=== PATIENT | male | born 1980 | race Caucasian/White ===

== ENCOUNTER 2019-08-15 18:33 | Emergency (ER) | payer BC ==
[2019-08-15] MEDS ORDERED: SODIUM CHLORIDE 0.9% 1,000 ML IV STA (18:47)
[2019-08-15] MEDS ORDERED: MAG HYDROX/AL HYDROX/SIMETH 30 ML, HYOSCYAMINE ELIXIR 10 ML, LIDOCAINE VISCOUS 2% 10 ML PO STA ×3 (18:48)
--- NOTE | 2019-08-15 18:51 | ED ---
General Adult HPI - General Chief complaint: Abdominal Pain Stated complaint: Stomach pain Time Seen by Provider: 08/15/19 18:43 Source: patient, RN notes reviewed, old records reviewed Mode of arrival: ambulatory Limitations: no limitations - History of Present Illness Initial comments: 39-year-old male patient with no pertinent past medical history presents to ED for chief complaint of epigastric pain and right upper quadrant pain since last night. Patient reports he went to urgent care who believe it may be gastritis symptom they brought him prescription he did not fill it. He reports that the pain is continued. He reportedly called his friend who is a nurse to thought it might be his gallbladder. Denies any previous intra-abdominal surgeries. Denies any other complaints at this time. Systemic: Pt denies fatigue, fever/chills, rash. Pt denies weakness, night sweats, weight loss. Neuro: Pt denies headache, visual disturbances, syncope or pre-syncope. HEENT: Pt denies ocular discharge or irritation, otalgia, rhinorrhea, pharyngitis or notable lymphadenopathy. Cardiopulmonary: Pt denies chest pain, SOB, heart palpitations, dyspnea on exertion. Abdominal/GI: Pt denies n/v/d. : Pt denies dysuria, burning w/ urination, frequency/urgency. Denies new onset urinary or bowel incontinence. MSK: Pt denies myalgia, loss of strength or function in extremities. Neuro: Pt denies new onset weakness, paresthesias. - Related Data Previous Rx's Medication Instructions Recorded Acetaminophen-Codeine 300-30mg 1 tab PO Q6H PRN #30 tablet 05/23/15 [Tylenol #3] Albuterol Inhaler [Ventolin Hfa 1 - 2 puff INHALATION Q6HR #1 05/23/15 Inhaler] inhaler Allergies Allergy/AdvReac Type Severity Reaction Status Date / Time No Known Allergies Allergy Verified 08/15/19 18:37 Review of Systems ROS Statement: Those systems with pertinent positive or pertinent negative responses have been documented in the HPI. ROS Other: All systems not noted in ROS Statement are negative. Past Medical History Past Medical History: No Reported History History of Any Multi-Drug Resistant Organisms: None Reported Past Surgical History: Hernia Repair Past Psychological History: No Psychological Hx Reported Smoking Status: Never smoker Past Alcohol Use History: None Reported Past Drug Use History: None Reported General Exam - General Exam Comments Initial Comments: Constitutional: NAD, AOX3, Pt has pleasant affect. HEENT: NC/AT, trachea midline, neck supple, no lymphadenopathy. Posterior pharynx non erythematous, without exudates. External ears appear normal, without discharge. Mucous membranes moist. Eyes PERRLA, EOM intact. There is no scleral icterus. No pallor noted. Cardiopulmonary: RRR, no murmurs, rubs or gallops, no JVD noted. Lungs CTAB in anterior and posterior brothers. No peripheral edema. Abdominal exam: Abdomen soft and non-distended. Abdomen mild tender to palpation right upper quadrant epigastric region. No guarding or rigidity. Mckay sign is negative.. Bowel sounds active in LLQ. No hepatosplenomegaly. No ecchymosis Neuro: CN II-XII grossly intact. No nuchal rigidity. No raccon eyes, no bullock sign, no hemotympanum. No cervical spinal tenderness. MSK: No posterior calf tenderness bilaterally, homans sign negative bilaterally. Posterior tibialis and radial pulse +2 bilaterally. Sensation intact in upper and lower extremities. Full active ROM in upper and lower extremities, 5/5 stregnth. Limitations: no limitations Course Vital Signs 08/15/19 18:35 Temperature 97.9 F Pulse Rate 70 Respiratory 20 Rate Blood Pressure 149/89 O2 Sat by Pulse 98 Oximetry Medical Decision Making - Medical Decision Making 39-year-old male patient with no pertinent past medical history presents to ED for chief complaint of epigastric pain and right upper quadrant pain since last night. Patient reports he went to urgent care who believe it may be gastritis symptom they brought him prescription he did not fill it. He reports that the pain is continued. He reportedly called his friend who is a nurse to thought it might be his gallbladder. Denies any previous intra-abdominal surgeries. Denies any other complaints at this time. Vital signs stable, afebrile. Physical exam: Abdomen soft and non-distended. Abdomen mild tender to palpation right upper quadrant epigastric region. No guarding or rigidity. Mckay sign is negative.. Bowel sounds active in LLQ. No hepatosplenomegaly. No ecchymosis. Laboratory investigations revealed mild cytosis 11.7. No lactic acidosis. UA displayed small blood was 1 protein, trace of esterase, 3 white blood cells. A bladder ultrasound displayed numerous gallstones, no dilated ducts, no acute fluid or gallbladder wall thickening. KUB displayed no acute process. Findings were discussed with patient Patient feeling much improved after Toradol. Abdomen nontender on repeat exam. Patient was discharged with outpatient follow-up with primary care provider and general surgeon. We'll turn the ER physician worsens. Case discussed with Dr. Hobbs. - Lab Data Result diagrams: 08/15/19 18:57 08/15/19 18:57 Lab Results 08/15/19 08/15/19 08/15/19 Range/Units 18:57 18:57 18:57 WBC 11.7 H (3.8-10.6) k/uL RBC 5.03 (4.30-5.90) m/uL Hgb 15.6 (13.0-17.5) gm/dL Hct 46.3 (39.0-53.0) % MCV 91.9 (80.0-100.0) fL MCH 31.1 (25.0-35.0) pg MCHC 33.8 (31.0-37.0) g/dL RDW 12.8 (11.5-15.5) % Plt Count 233 (150-450) k/uL Neutrophils % 77 % Lymphocytes % 14 % Monocytes % 5 % Eosinophils % 3 % Basophils % 1 % Neutrophils # 8.9 H (1.3-7.7) k/uL Lymphocytes # 1.6 (1.0-4.8) k/uL Monocytes # 0.6 (0-1.0) k/uL Eosinophils # 0.3 (0-0.7) k/uL Basophils # 0.1 (0-0.2) k/uL Sodium 142 (137-145) mmol/L Potassium 4.3 (3.5-5.1) mmol/L Chloride 105 (98-107) mmol/L Carbon Dioxide 27 (22-30) mmol/L Anion Gap 10 mmol/L BUN 15 (9-20) mg/dL Creatinine 0.94 (0.66-1.25) mg/dL Est GFR (CKD-EPI)AfAm >90 (>60 ml/min/1.73 sqM) Est GFR (CKD-EPI)NonAf >90 (>60 ml/min/1.73 sqM) Glucose 110 H (74-99) mg/dL Plasma Lactic Acid Tucker 0.8 (0.7-2.0) mmol/L Calcium 9.9 (8.4-10.2) mg/dL Total Bilirubin 0.5 (0.2-1.3) mg/dL AST 31 (17-59) U/L ALT 24 (4-49) U/L Alkaline Phosphatase 64 (38-126) U/L Total Protein 8.2 (6.3-8.2) g/dL Albumin 5.1 H (3.5-5.0) g/dL Lipase 145 (23-300) U/L Urine Color Urine Appearance (Clear) Urine pH (5.0-8.0) Ur Specific [place] (1.001-1.035) Urine Protein (Negative) Urine Glucose (UA) (Negative) Urine Ketones (Negative) Urine Blood (Negative) Urine Nitrite (Negative) Urine Bilirubin (Negative) Urine Urobilinogen (<2.0) mg/dL Ur Leukocyte Esterase (Negative) Urine WBC (0-5) /hpf Calcium Oxalate Crystal (None) /hpf Urine Mucus (None) /hpf 08/15/19 Range/Units 18:57 WBC (3.8-10.6) k/uL RBC (4.30-5.90) m/uL Hgb (13.0-17.5) gm/dL Hct (39.0-53.0) % MCV (80.0-100.0) fL MCH (25.0-35.0) pg MCHC (31.0-37.0) g/dL RDW (11.5-15.5) % Plt Count (150-450) k/uL Neutrophils % % Lymphocytes % % Monocytes % % Eosinophils % % Basophils % % Neutrophils # (1.3-7.7) k/uL Lymphocytes # (1.0-4.8) k/uL Monocytes # (0-1.0) k/uL Eosinophils # (0-0.7) k/uL Basophils # (0-0.2) k/uL Sodium (137-145) mmol/L Potassium (3.5-5.1) mmol/L Chloride (98-107) mmol/L Carbon Dioxide (22-30) mmol/L Anion Gap mmol/L BUN (9-20) mg/dL Creatinine (0.66-1.25) mg/dL Est GFR (CKD-EPI)AfAm (>60 ml/min/1.73 sqM) Est GFR (CKD-EPI)NonAf (>60 ml/min/1.73 sqM) Glucose (74-99) mg/dL Plasma Lactic Acid Tucker (0.7-2.0) mmol/L Calcium (8.4-10.2) mg/dL Total Bilirubin (0.2-1.3) mg/dL AST (17-59) U/L ALT (4-49) U/L Alkaline Phosphatase (38-126) U/L Total Protein (6.3-8.2) g/dL Albumin (3.5-5.0) g/dL Lipase (23-300) U/L Urine Color Yellow Urine Appearance Cloudy (Clear) Urine pH 6.0 (5.0-8.0) Ur Specific [place] 1.029 (1.001-1.035) Urine Protein 1+ H (Negative) Urine Glucose (UA) Negative (Negative) Urine Ketones Negative (Negative) Urine Blood Small H (Negative) Urine Nitrite Negative (Negative) Urine Bilirubin Negative (Negative) Urine Urobilinogen 2.0 (<2.0) mg/dL Ur Leukocyte Esterase Trace H (Negative) Urine WBC 3 (0-5) /hpf Calcium Oxalate Crystal Many H (None) /hpf Urine Mucus Many H (None) /hpf Disposition Clinical Impression: Biliary colic Disposition: HOME SELF-CARE Condition: Stable Instructions (If sedation given, give patient instructions): Low Fat Diet (ED), Gallstones (ED), Biliary Colic (ED) Additional Instructions: Follow-up with primary care provider tomorrow. Follow Up with general surgeon tomorrow. Return to ER if condition worsens in any way. Is patient prescribed a controlled substance at d/c from ED?: No Referrals: Dustin Nieto DO [Primary Care Provider] - 1-2 days Sarah Manning MD [STAFF PHYSICIAN] - 1-2 days
[2019-08-15 19:11] LABS: Basophils # (A) 0.1 k/uL (0-0.2); Basophils % (A) 1 %; Eosinophils # (A) 0.3 k/uL (0-0.7); Eosinophils % (A) 3 %; HCT 46.3 % (39.0-53.0); HGB 15.6 gm/dL (13.0-17.5); Lymphocytes # (A) 1.6 k/uL (1.0-4.8); Lymphocytes % (A) 14 %; MCH 31.1 pg (25.0-35.0); MCHC 33.8 g/dL (31.0-37.0); MCV 91.9 fL (80.0-100.0); Mean Platelet Volume 8.7; Monocytes # (A) 0.6 k/uL (0-1.0); Monocytes % (A) 5 %; Neutrophils # (A) 8.9 k/uL (1.3-7.7); Neutrophils % (A) 77 %; Platelet Count 233 k/uL (150-450); RBC 5.03 m/uL (4.30-5.90); RDW 12.8 % (11.5-15.5); WBC 11.7 k/uL (3.8-10.6)
[2019-08-15 19:13] LABS: Appearance,Urine Cloudy (Clear); Bilirubin,Urine Negative (Negative); Blood,Urine Small (Negative); Calcium Oxalate Crystals,Urine Many /hpf; Color,Urine Yellow; Glucose,Urine (UA) Negative (Negative); Ketones,Urine Negative (Negative); Leukocyte Esterase,Urine Trace (Negative); Mucus,Urine Many /hpf; Nitrite,Urine Negative (Negative); Protein,Urine 1+ (Negative); Specific Gravity,Urine 1.029 (1.001-1.035); WBC,Urine 3 /hpf (0-5)
[2019-08-15 19:21] LABS: ALT 24 U/L (4-49); AST 31 U/L (17-59); African American GFR (CKD) >90 (>60 ml/min/1.73 sqM); Albumin 5.1 g/dL (3.5-5.0); Alkaline Phosphatase 64 U/L (38-126); Anion Gap 10 mmol/L; Blood Urea Nitrogen 15 mg/dL (9-20); Calcium 9.9 mg/dL (8.4-10.2); Carbon Dioxide 27 mmol/L (22-30); Chloride 105 mmol/L (98-107); Glucose 110 mg/dL (74-99); Non-African American GFR(CKD) >90 (>60 ml/min/1.73 sqM); Potassium 4.3 mmol/L (3.5-5.1); Sodium 142 mmol/L (137-145); Total Bilirubin 0.5 mg/dL (0.2-1.3); Total Protein 8.2 g/dL (6.3-8.2)
--- NOTE | 2019-08-15 19:24 | XR ---
EXAMINATION TYPE: XR KUB DATE OF EXAM: 08/15/2019 COMPARISON: NONE HISTORY: Abdominal pain TECHNIQUE: 2 views upright FINDINGS: There is no sign of intestinal obstruction or pneumoperitoneum. Fecal pattern is normal. Linda ng bases are clear. There are no pathologic calcifications over the kidneys. There is no evidence of a mass. IMPRESSION: Nonacute abdomen.
--- NOTE | 2019-08-15 20:43 | US ---
EXAMINATION TYPE: US gallbladder DATE OF EXAM: 08/15/2019 COMPARISON: NONE CLINICAL HISTORY: RUQ pain. RUQ pain x 1 day. Hx hernia repair. EXAM MEASUREMENTS: Liver Length: 14.6 cm Gallbladder Wall: 0.24 cm CBD: 0.46 cm Right Kidney: 11.2 x 5.9 x 5.8 cm Limited due to gas Pancreas: Obscured by overlying bowel gas Liver: Appears to be wnl. Limited due to gas. Gallbladder: Measures 9.2 cm in length. Multiple hyperechoic foci seen within the gallbladder. Evidence for sonographic Mckay's sign: yes CBD: Appears to be wnl Right Kidney: No hydronephrosis or masses seen IMPRESSION: There are numerous gallstones. No dilated ducts. No free fluid. No gallbladder wall thickening seen.
[2019-08-15] MEDS ORDERED: KETOROLAC 30 MG/ML 1 ML VIAL IVP STA (21:16)
[2019-08-15] MEDS ORDERED: ONDANSETRON 4 MG/2 ML VIAL IVP STA (21:16)
[2019-08-15] MEDS ORDERED: ONDANSETRON 4 MG ODT STARTER PACK 2 TAB BTL PO STA (22:25)
[2019-08-15] MEDS ORDERED: ACET/COD 300 MG/30 MG STARTER PACK 6 TAB BTL PO STA (22:25)
[2019-08-15 22:33] VITALS: BP 143/75; PULSE 80; RESP 18; TEMP 97.8
--- NOTE | 2019-08-16 18:35 | ED ---
Medical Decision Making - Medical Decision Making Patient called emergency department at approximately 1800 on 08/16 stating he is still experiencing pain. Recommended patient to return to emergency department for concern for cholecystitis. Patient verbalized understanding. Discussed risks of cholecystitis patient verbalized understanding. - Lab Data Result diagrams: 08/15/19 18:57 08/15/19 18:57 Lab Results 08/15/19 08/15/19 08/15/19 Range/Units 18:57 18:57 18:57 WBC 11.7 H (3.8-10.6) k/uL RBC 5.03 (4.30-5.90) m/uL Hgb 15.6 (13.0-17.5) gm/dL Hct 46.3 (39.0-53.0) % MCV 91.9 (80.0-100.0) fL MCH 31.1 (25.0-35.0) pg MCHC 33.8 (31.0-37.0) g/dL RDW 12.8 (11.5-15.5) % Plt Count 233 (150-450) k/uL Neutrophils % 77 % Lymphocytes % 14 % Monocytes % 5 % Eosinophils % 3 % Basophils % 1 % Neutrophils # 8.9 H (1.3-7.7) k/uL Lymphocytes # 1.6 (1.0-4.8) k/uL Monocytes # 0.6 (0-1.0) k/uL Eosinophils # 0.3 (0-0.7) k/uL Basophils # 0.1 (0-0.2) k/uL Sodium 142 (137-145) mmol/L Potassium 4.3 (3.5-5.1) mmol/L Chloride 105 (98-107) mmol/L Carbon Dioxide 27 (22-30) mmol/L Anion Gap 10 mmol/L BUN 15 (9-20) mg/dL Creatinine 0.94 (0.66-1.25) mg/dL Est GFR (CKD-EPI)AfAm >90 (>60 ml/min/1.73 sqM) Est GFR (CKD-EPI)NonAf >90 (>60 ml/min/1.73 sqM) Glucose 110 H (74-99) mg/dL Plasma Lactic Acid Tucker 0.8 (0.7-2.0) mmol/L Calcium 9.9 (8.4-10.2) mg/dL Total Bilirubin 0.5 (0.2-1.3) mg/dL AST 31 (17-59) U/L ALT 24 (4-49) U/L Alkaline Phosphatase 64 (38-126) U/L Total Protein 8.2 (6.3-8.2) g/dL Albumin 5.1 H (3.5-5.0) g/dL Lipase 145 (23-300) U/L Urine Color Urine Appearance (Clear) Urine pH (5.0-8.0) Ur Specific [place] (1.001-1.035) Urine Protein (Negative) Urine Glucose (UA) (Negative) Urine Ketones (Negative) Urine Blood (Negative) Urine Nitrite (Negative) Urine Bilirubin (Negative) Urine Urobilinogen (<2.0) mg/dL Ur Leukocyte Esterase (Negative) Urine WBC (0-5) /hpf Calcium Oxalate Crystal (None) /hpf Urine Mucus (None) /hpf 08/15/19 Range/Units 18:57 WBC (3.8-10.6) k/uL RBC (4.30-5.90) m/uL Hgb (13.0-17.5) gm/dL Hct (39.0-53.0) % MCV (80.0-100.0) fL MCH (25.0-35.0) pg MCHC (31.0-37.0) g/dL RDW (11.5-15.5) % Plt Count (150-450) k/uL Neutrophils % % Lymphocytes % % Monocytes % % Eosinophils % % Basophils % % Neutrophils # (1.3-7.7) k/uL Lymphocytes # (1.0-4.8) k/uL Monocytes # (0-1.0) k/uL Eosinophils # (0-0.7) k/uL Basophils # (0-0.2) k/uL Sodium (137-145) mmol/L Potassium (3.5-5.1) mmol/L Chloride (98-107) mmol/L Carbon Dioxide (22-30) mmol/L Anion Gap mmol/L BUN (9-20) mg/dL Creatinine (0.66-1.25) mg/dL Est GFR (CKD-EPI)AfAm (>60 ml/min/1.73 sqM) Est GFR (CKD-EPI)NonAf (>60 ml/min/1.73 sqM) Glucose (74-99) mg/dL Plasma Lactic Acid Tucker (0.7-2.0) mmol/L Calcium (8.4-10.2) mg/dL Total Bilirubin (0.2-1.3) mg/dL AST (17-59) U/L ALT (4-49) U/L Alkaline Phosphatase (38-126) U/L Total Protein (6.3-8.2) g/dL Albumin (3.5-5.0) g/dL Lipase (23-300) U/L Urine Color Yellow Urine Appearance Cloudy (Clear) Urine pH 6.0 (5.0-8.0) Ur Specific [place] 1.029 (1.001-1.035) Urine Protein 1+ H (Negative) Urine Glucose (UA) Negative (Negative) Urine Ketones Negative (Negative) Urine Blood Small H (Negative) Urine Nitrite Negative (Negative) Urine Bilirubin Negative (Negative) Urine Urobilinogen 2.0 (<2.0) mg/dL Ur Leukocyte Esterase Trace H (Negative) Urine WBC 3 (0-5) /hpf Calcium Oxalate Crystal Many H (None) /hpf Urine Mucus Many H (None) /hpf Disposition Clinical Impression: Biliary colic Disposition: HOME SELF-CARE Condition: Stable Instructions (If sedation given, give patient instructions): Biliary Colic (ED), Gallstones (ED), Low Fat Diet (ED) Additional Instructions: Follow-up with primary care provider tomorrow. Follow Up with general surgeon tomorrow. Return to ER if condition worsens in any way. Is patient prescribed a controlled substance at d/c from ED?: No Referrals: Sarah Manning MD [STAFF PHYSICIAN] - 1-2 days Dustin Nieto DO [Primary Care Provider] - 1-2 days
== END 2019-08-15 22:30 | disposition home or self-care (01) ==
LOC: EC 18:33
DX: K80.70 Calculus of gallbladder and bile duct without cholecystitis without obstruction (principal); R80.9 Proteinuria, unspecified; R31.9 Hematuria, unspecified; R82.81 Pyuria; R82.998 Other abnormal findings in urine
CPT/HCPCS: 36415; 80053; 83605; 83690; 85025; 81001; 74018; 76705; 99285; 96374; 96375; 96361 ×2; J2405; J1885; S0119

== ENCOUNTER → 2020-09-10 | Outpatient (CLI) | payer BC ==
--- NOTE | 2020-09-10 15:45 | CONS ---
CONSULTATION DATE OF SERVICE: 09/10/2020 This is a 40-year-old gentleman who has been evaluated in the sleep center for his multiple sleep problems. HISTORY OF PRESENT ILLNESS/SLEEP-WAKE EVALUATION: Patient usually goes to bed quite early, 7:30 or 8:30, because his son is 5 years old and he sleeps with him in the same bed, and he usually goes to bed with his son. Then he stays in bed until he falls asleep, and that usually takes a long time. He gets up in the morning around 6 a.m. on weekdays. On weekends he goes to bed about 9 or 10 p.m. and gets up in the morning around 6 or 7 a.m. No TV in bedroom. He usually sleeps on the back and side position. He snores rarely, but he wakes up from sleep 2 times with nocturia. No history of hypnagogic hallucinations, sleep paralysis or cataplexy. During the day the patient does not take naps. [place] Sleepiness Scale is 1. PAST MEDICAL HISTORY: Positive for recent memory problems, episodes of depression, headaches. PAST SURGICAL HISTORY: Hernia repair. MEDICATIONS: Multivitamins. SOCIAL HISTORY: Negative for smoking or using alcohol. FAMILY HISTORY: Positive for heart problems. REVIEW OF SYSTEMS: Multiple awakenings from sleep, feeling not refreshed in the morning after getting out of bed, difficulties paying attention, problems with memory and concentration. PHYSICAL EXAMINATION: GENERAL: A pleasant gentleman without distress. VITAL SIGNS: BP 110/75, HR 76, RR 12, height 5 feet 11 inches, weight 172.8 pounds, temperature 98.7, oxygen saturation at room air 98%. HEENT: PERRLA, EOMI. Evaluation of oropharynx showed tongue protrudes midline. Low position of soft palate. Mallampati III to IV. NECK: Supple. No JVD. Thyroid is not palpable. Neck measures 16 inches in circumference. LUNGS: Clear to percussion and to auscultation. Good air exchange. No wheezing or rhonchi. HEART: S1, S2 regular. No murmurs, gallops or rubs. ABDOMEN: Soft and nontender. Bowel sounds are present. No organomegaly appreciated. EXTREMITIES: No clubbing or cyanosis. HADOOP CONSULTANT: Awake, alert, and oriented X3. Cranial nerves 2 to 7 intact. There is no fasciculation or atrophy. noted. No focal deficits observed. IMPRESSION: 1. Multiple awakenings from sleep with nocturia, low position of soft palate, feeling not refreshed in the morning after sometimes a long period of sleep; possible obstructive sleep apnea-hypopnea syndrome. 2. Difficulties initiating sleep; psychophysiological insomnia. The patient sleeps in bed with his son. 3. Memory problems. 4. Headaches. 5. Episodes of depression. 6. Status post hernia repair. PLAN: 1. I discussed with the patient some psychological techniques for treatment of insomnia: Stimulus control, paradoxical intention. 2. Will proceed with a sleep study for evaluation of patient's breathing during sleep. 3. Precautions related to driving. No driving if feeling any sleepiness. 4. Sleep hygiene with regular time in bed for 7-1/2 hours. Thank you very much for referring this patient for consultation. Sincerely, Quang Cardenas MD, PhD, FAASM Diplomat of [place] [employer] [place] [employer] Ass[employer] [facility] [place] MMODL / KAYLEEN: [id number] /
== END | disposition home or self-care (01) ==
LOC: SLEEP 11:30
PROVIDERS: ATTEND Internal Medicine
DX: F51.04 Psychophysiologic insomnia (principal); R35.1 Nocturia; R51.9 Headache, unspecified; F32.9 Major depressive disorder, single episode, unspecified; Z98.890 Other specified postprocedural states; R41.3 Other amnesia
CPT/HCPCS: 99211

== ENCOUNTER → 2020-10-15 | Outpatient (CLI) | payer BC ==
--- NOTE | 2020-10-15 20:18 | SFUN ---
SLEEP CENTER FOLLOW UP NOTE DATE OF SERVICE: 10/15/2020 This is a 40-year-old gentleman who has been followed in Sleep Center and came in to discuss results of his home sleep apnea test and the following plan. I discussed results of his home sleep apnea test with the patient in detail. Total apnea-hypopnea index was 3, lowest desaturation 86%. Respiratory channel showed 3 central apneas, 2 obstructive apneas and 13 hypopneas. Saturation was below or equal to 88% for 12 minutes, according to computer calculation. Recording was done for 8 hours 34 minutes, but duration of analyzing time was only 5 hours 58 minutes because some of the sensors did not work for the whole period of time. The patient also that part of the time he did not sleep; consequently results of the test may underestimate the severity of his respiratory abnormalities. PHYSICAL EXAMINATION: GENERAL: A pleasant patient in no distress. VITAL SIGNS: BP 120/80, HR 68, RR 15, oxygen saturation at room air 96%. Temperature 96.7. HEENT: PERRLA, EOMI. Evaluation of oropharynx showed tongue protrudes midline. Low position of soft palate. Mallampati III to IV. NECK: Supple. No JVD. Thyroid is not palpable. LUNGS: Clear to percussion and to auscultation. Good air exchange. No wheezing or rhonchi. HEART: S1, S2 regular. No murmurs, gallops or rubs. ABDOMEN: Soft and nontender. Bowel sounds are present. No organomegaly appreciated. EXTREMITIES: No clubbing or cyanosis. REGIONAL EXTENSION SERVICE SPECIALIST: Awake, alert, and oriented X3. Cranial nerves 2 to 7 intact. There is no fasciculation or atrophy. noted. No focal deficits observed. IMPRESSION: 1. Very minimal abnormalities of respiration by results of home sleep apnea test, but results could be false-negative because the patient did not sleep for the whole period of the recording. 2. Psychophysiological insomnia. 3. Memory problems. 4. Headaches. 5. Episodes of depression. 6. Status post hernia repair. PLAN: 1. Repeat home sleep apnea test. 2. Sleep hygiene with regular time in bed for 7-1/2 hours. 3. No driving if feeling sleepiness. Thank you very much for allowing me to participate in the management of your patient. Sincerely, Quang Cardenas MD, PhD, FAASM Diplomat of [place] [employer] [place] [employer] Ent Surgeon [facility] [place] MMKATHIAL / KAYLEEN: [id number] /
== END ==
LOC: SLEEP 16:05
PROVIDERS: ATTEND Internal Medicine
DX: F51.04 Psychophysiologic insomnia (principal); R51.9 Headache, unspecified; F32.9 Major depressive disorder, single episode, unspecified; R41.3 Other amnesia; Z98.890 Other specified postprocedural states

== ENCOUNTER → 2021-04-14 | Outpatient (CLI) | payer BC | END | disposition home or self-care (01) | LOC: LABWHC1 09:57 | PROVIDERS: ATTEND Dermatology Dermatopathology | DX: L40.0 Psoriasis vulgaris (principal); Z79.899 Other long term (current) drug therapy | CPT/HCPCS: 36415; 86480 ==

== ENCOUNTER → 2022-02-24 | Outpatient (CLI) | payer BC ==
--- NOTE | 2022-02-24 16:58 | P.PN ---
Subjective DATE: 02/24/2022 FOLLOW UP VISIT. 41-year-old gentleman has been followed in the sleep clinic for possible obstructive sleep apnea hypopnea syndrome. Patient had sleep study about 17 months ago which showed borderline results with apnea-hypopnea index 5.0. Presently patient sleep schedule from 9:30- 10 PM to 5:30 AM. Patient wakes up from sleep 2 times with nocturia. Patient feel tiredness and episodes of sleepiness during the day. She continued to have difficulties with the falling to sleep. [place] Sleepiness Scale is 4. MEDICATIONS:1. Melatonin 5-10 mg several times a week. During physical exam: GENERAL: A pleasant patient without any distress. VITAL SIGNS: BP 124/76, HR 52, RR 14 , weight 176.0, temperature 97.1, oxygen saturation at room air 97 % . HEENT: PERRLA, EOMI.low position of soft palate, Mallapati 3-4 . NECK: Supple. No JVD. LUNGS: Clear to percussion and to auscultation. Good air exchange. No wheezing or rhonchi. HEART: S1, S2 regular. ABDOMEN: Soft and nontender.[] EXTREMITIES: No clubbing or cyanosis. PERSONNEL ASSISTANT: Awake, alert, and oriented x3. No focal deficit. Impressions: 1. Multiple awakenings from sleep, low position of soft palate. Results of home sleep apnea test 1 year ago borderline, possibly underestimation of severity of sleep apnea by home sleep apnea test. Obstructive sleep apnea hypopnea syndrome 2. Difficulties to initiate sleep cycle physiological insomnia. 3. Memory problems. 4. Headaches. 5. History of episodes of depression. 6. Status post hernia repair. Plan: 1. Polysomnography for evaluation of patient breathing during the sleep. Results of previously done home sleep apnea test borderline. Patient has history of insomnia which could be the reason for underestimation of severity of sleep apnea. 2. Sleep hygiene was on bed for 7 to half hours. 3. No driving if feel any sleepiness. 4. Following plan after reviewing results of polysomnogram. Thank you very much for allowing me to participate in the management of your patient. Quang Cardenas MD, PhD, FAASM. Diplomat of [place] [employer], Sleep Medicine Board by [place] [employer] Teacher [facility] [place]
== END | disposition home or self-care (01) ==
LOC: SLEEP 16:04
PROVIDERS: ATTEND Internal Medicine
DX: G47.33 Obstructive sleep apnea (adult) (pediatric) (principal); R51.9 Headache, unspecified; Z98.890 Other specified postprocedural states
CPT/HCPCS: 99212

== ENCOUNTER → 2022-04-26 | Outpatient (CLI) | payer BC | END | disposition home or self-care (01) | LOC: LABWHC1 09:59 | PROVIDERS: ATTEND Dermatology | DX: L40.0 Psoriasis vulgaris (principal) | CPT/HCPCS: 36415; 86480 ==

== ENCOUNTER → 2022-05-18 | Outpatient (CLI) | payer BC | END | disposition home or self-care (01) | LOC: LABWHC1 16:18 | PROVIDERS: ATTEND Dermatology | DX: Z79.899 Other long term (current) drug therapy (principal) | CPT/HCPCS: 36415; 86480 ==

== ENCOUNTER → 2023-08-04 | Outpatient (CLI) | payer BC | END | disposition home or self-care (01) | LOC: LABWHC1 10:49 | PROVIDERS: ATTEND Nurse Practitioner Family | DX: L40.0 Psoriasis vulgaris (principal); Z79.899 Other long term (current) drug therapy | CPT/HCPCS: 36415; 86480 ==

== ENCOUNTER 2024-01-11 16:24 | Emergency (ER) | payer BC ==
--- NOTE | 2024-01-11 16:53 | ED ---
Abdominal Pain HPI - General Stated Complaint: gallstones Time Seen by Provider: 01/11/24 17:03 Source: RN notes reviewed - History of Present Illness Initial Comments: 43 year old male with hx of gallstones presenting to the ER with right upper quadrant pain x 1 day. states the pain is constant and awoke him from his sleep at 4 AM this morning. States it feels similar to previous "gallstone pain". He has known history of gallstones and concerned he may have a "clogged duct". last ultrasound of abdomen was [address] Manning. denies fever, chills, vomiting, diarrhea. He has been tolerating orals well today. - Related Data Previous Rx's Medication Instructions Recorded Acetaminophen-Codeine 300-30mg 1 tab PO Q6H PRN #30 tablet 05/23/15 [Tylenol #3] Albuterol Inhaler [Ventolin Hfa 1 - 2 puff INHALATION Q6HR #1 05/23/15 Inhaler] inhaler Ketorolac [Toradol] 10 mg PO Q8HR #15 tab 01/11/24 Ondansetron Odt [Zofran Odt] 4 mg PO Q8HR PRN #10 tab 01/11/24 Allergies Allergy/AdvReac Type Severity Reaction Status Date / Time No Known Allergies Allergy Verified 01/11/24 17:46 Review of Systems ROS Statement: Those systems with pertinent positive or pertinent negative responses have been documented in the HPI. ROS Other: All systems not noted in ROS Statement are negative. Past Medical History Past Medical History: No Reported History History of Any Multi-Drug Resistant Organisms: None Reported Past Surgical History: Hernia Repair Past Psychological History: No Psychological Hx Reported Past Alcohol Use History: None Reported Past Drug Use History: None Reported General Exam - General Exam Comments Initial Comments: Visual Physical Exam General: Well-appearing, nontoxic, no acute distress. Head: Normocephalic, atraumatic Eyes: PERRLA, EOMI ENT: Airway patent Chest: Nonlabored breathing Skin: No visual rash, normal skin tone Neuro: Alert and oriented 3 Musculoskeletal: No gross abnormalities General appearance: alert, in no apparent distress Head exam: Present: atraumatic, normocephalic, normal inspection Eye exam: Present: normal appearance, PERRL, EOMI. Absent: scleral icterus, conjunctival injection, periorbital swelling ENT exam: Present: normal exam, mucous membranes moist Neck exam: Present: normal inspection. Absent: tenderness, meningismus, lymphadenopathy Respiratory exam: Present: normal lung sounds bilaterally. Absent: respiratory distress, wheezes, rales, rhonchi, stridor Cardiovascular Exam: Present: regular rate, normal rhythm, normal heart sounds. Absent: systolic murmur, diastolic murmur, rubs, gallop, clicks GI/Abdominal exam: Present: soft, normal bowel sounds, other (Negative Mckay sign). Absent: distended, tenderness, guarding, rebound, rigid Extremities exam: Present: normal inspection, full ROM, normal capillary refill. Absent: tenderness, pedal edema, joint swelling, calf tenderness Course Vital Signs 01/11/24 01/11/24 01/11/24 17:39 20:43 21:41 Temperature 98.6 F 98.0 F 98.6 F Pulse Rate 67 50 L 55 L Respiratory 18 18 17 Rate Blood Pressure 152/98 164/76 127/69 O2 Sat by Pulse 97 99 95 Oximetry Medical Decision Making - Medical Decision Making I completed the quick note portion of this chart signed Fadia Brock PA-C Was pt. sent in by a medical professional or institution (, ANICETO, RELATIONS SPECIALIST, urgent care, hospital, or skilled nursing...) When possible be specific @ -No Did you speak to anyone other than the patient for history (EMS, parent, family, police, friend...)? What history was obtained from this source @ -No Did you review nursing and triage notes (agree or disagree)? Why? @ -I reviewed and agree with nursing and triage notes Were old charts reviewed (outside hosp., previous admission, EMS record, old EKG, old radiological studies, urgent care reports/EKG's, skilled nursing records)? Report findings @ -No old charts were reviewed Differential Diagnosis (chest pain, altered mental status, abdominal pain women, abdominal pain men, vaginal bleeding, weakness, fever, dyspnea, syncope, headache, dizziness, GI bleed, back pain, seizure, CVA, palpatations, mental health, musculoskeletal)? @ -Differential Abdominal Pain Men: Appendicitis, cholecystitis, diverticulosis, ischemic bowel, pancreatitis, hepatitis, UTI, gastroenteritis, AAA, incarcerated hernia, bowel obstruction, co nstipation, inflammatory bowel, hepatitis, peptic ulcer disease, splenic infarction, perforated viscus, testicular torsion, this is not meant to be an all-inclusive list EKG interpreted by me (3pts min.). @ -None X-rays interpreted by me (1pt min.). @ -None done CT interpreted by me (1pt min.). @ -None done U/S interpreted by me (1pt. min.). @ -Ultrasound of gallbladder reveals gallstones without secondary ultrasound evidence for acute cholecystitis. No significant changes from previous ultras ound What testing was considered but not performed or refused? (CT, X-rays, U/S, labs)? Why? @ -None What meds were considered but not given or refused? Why? @ -None Did you discuss the management of the patient with other professionals (professionals i.e. , PA, RELATIONS SPECIALIST, lab, RT, psych nurse, social media senior associate, business resiliency manager, teacher, transit authority police officer, returned case inspector)? Give summary @ -No Was smoking cessation discussed for >3mins.? @ -No Was critical care preformed (if so, how long)? @ -No Were there social determinants of health that impacted care today? How? (Homelessness, low income, unemployed, alcoholism, drug addiction, transportation, low edu. Level, literacy, decrease access to med. care, [facility], rehab)? @ -No Was there de-escalation of care discussed even if they declined (Discuss DNR or withdrawal of care, Hospice)? DNR status @ -No What co-morbidities impacted this encounter? (DM, HTN, Smoking, COPD, CAD, Cancer, CVA, ARF, Chemo, Hep., AIDS, mental health diagnosis, sleep apnea, morbid obesity)? @ -None Was patient admitted / discharged? Hospital course, mention meds given and route, prescriptions, significant lab abnormalities, going to OR and other pertinent info. @ -Patient was discharged. Patient was seen and evaluated for right upper quadrant abdominal pain x 1 day. Patient has history of gallstones and reports this feels similar to previous flareups. Patient is afebrile upon examination and vitals are within normal limits. Patient is nontender to palpation of abdomen. Patient is given IV fluids, Toradol, Zofran, and Protonix. Lab work is unremarkable. Ultrasound reveals gallstones without secondary ultrasound evidence for acute cholecystitis. There is no significant changes from previous ultrasound. Upon reevaluation patient reports symptoms have improved. Patient is tolerating orals well. Discussed with patient diagnosis of symptomatic cholelithiasis. Supportive care discussed. Advised to follow-up with Dr. Manning. Strict return/alarm symptoms discussed with patient in detail and he shows understanding agrees with plan. Case discussed with my attending Dr. Nolasco. Patient is discharged in stable condition, prescribed Toradol and Zofran. Undiagnosed new problem with uncertain prognosis? @ -No Drug Therapy requiring intensive monitoring for toxicity (Heparin, Nitro, Insulin, Cardizem)? @ -No Were any procedures done? @ -No Diagnosis/symptom? @ -Symptomatic cholelithiasis Acute, or Chronic, or Acute on Chronic? @ -Acute Uncomplicated (without systemic symptoms) or Complicated (systemic symptoms)? @ -Uncomplicated Side effects of treatment? @ -No Exacerbation, Progression, or Severe Exacerbation? @ -No Poses a threat to life or bodily function? How? (Chest pain, USA, DC, pneumonia, PE, COPD, DKA, ARF, appy, cholecystitis, CVA, Diverticulitis, Homicidal, Suicidal, threat to staff... and all critical care pts) @ -Low likelihood - Lab Data Result diagrams: 01/11/24 17:44 01/11/24 17:44 Lab Results 01/11/24 01/11/24 01/11/24 Range/Units 17:44 17:44 20:31 WBC 6.5 (3.8-10.6) k/uL RBC 4.89 (4.30-5.90) m/uL Hgb 14.9 (13.0-17.5) gm/dL Hct 45.9 (39.0-53.0) % MCV 93.8 (80.0-100.0) fL MCH 30.5 (25.0-35.0) pg MCHC 32.5 (31.0-37.0) g/dL RDW 12.7 (11.5-15.5) % Plt Count 224 (150-450) k/uL MPV 8.2 Neutrophils % 78 % Lymphocytes % 15 % Monocytes % 5 % Eosinophils % 2 % Basophils % 0 % Neutrophils # 5.1 (1.3-7.7) k/uL Lymphocytes # 1.0 (1.0-4.8) k/uL Monocytes # 0.3 (0-1.0) k/uL Eosinophils # 0.1 (0-0.7) k/uL Basophils # 0.0 (0-0.2) k/uL Sodium 138 (137-145) mmol/L Potassium 4.5 (3.5-5.1) mmol/L Chloride 103 (98-107) mmol/L Carbon Dioxide 27 (22-30) mmol/L Anion Gap 8 mmol/L BUN 10 (9-20) mg/dL Creatinine 0.78 (0.66-1.25) mg/dL Est GFR (CKD-EPI)AfAm >90 (>60 ml/min/1.73 sqM) Est GFR (CKD-EPI)NonAf >90 (>60 ml/min/1.73 sqM) Glucose 175 H (74-99) mg/dL Plasma Lactic Acid Tucker 1.3 (0.7-2.0) mmol/L Calcium 9.1 (8.4-10.2) mg/dL Total Bilirubin 0.6 (0.2-1.3) mg/dL AST 28 (17-59) U/L ALT 20 (4-49) U/L Alkaline Phosphatase 68 (38-126) U/L Total Protein 7.3 (6.3-8.2) g/dL Albumin 4.6 (3.5-5.0) g/dL Lipase 93 (23-300) U/L Disposition Clinical Impression: Symptomatic cholelithiasis Disposition: HOME SELF-CARE Condition: Stable Instructions (If sedation given, give patient instructions): Gallstones (ED) Additional Instructions: Please follow-up with Dr. Manning. Please return to the Emergency Department if symptoms worsen or any other concerns. Prescriptions: Ketorolac [Toradol] 10 mg PO Q8HR #15 tab Ondansetron Odt [Zofran Odt] 4 mg PO Q8HR PRN #10 tab PRN Reason: Nausea Is patient prescribed a controlled substance at d/c from ED?: No Referrals: Dustin Nieto DO [Primary Care Provider] - 1-2 days Sarah Manning MD [STAFF PHYSICIAN] - 1-2 days Time of Disposition: 21:27
[2024-01-11 18:15] LABS: Basophils % (A) 0 %; Eosinophils # (A) 0.1 k/uL (0-0.7); Eosinophils % (A) 2 %; HCT 45.9 % (39.0-53.0); HGB 14.9 gm/dL (13.0-17.5); Lymphocytes % (A) 15 %; MCH 30.5 pg (25.0-35.0); MCHC 32.5 g/dL (31.0-37.0); MCV 93.8 fL (80.0-100.0); Mean Platelet Volume 8.2; Monocytes # (A) 0.3 k/uL (0-1.0); Monocytes % (A) 5 %; Neutrophils # (A) 5.1 k/uL (1.3-7.7); Neutrophils % (A) 78 %; Platelet Count 224 k/uL (150-450); RBC 4.89 m/uL (4.30-5.90); RDW 12.7 % (11.5-15.5); WBC 6.5 k/uL (3.8-10.6)
--- NOTE | 2024-01-11 18:26 | US ---
EXAMINATION TYPE: US gallbladder DATE OF EXAM: 01/11/2024 COMPARISON: 08/15/2019 CLINICAL INDICATION: Male, 43 years old with history of RUQ pain; Patient states RUQ pain. States tomas t he has had known gallstones for 4 years. TECHNIQUE: Multiple sonographic images of the right upper quadrant are obtained. FINDINGS: EXAM MEASUREMENTS: Liver Length: 13.4 cm Gallbladder Wall: 0.2 cm CBD: 0.6 cm Right Kidney: 10.7 x 6.4 x 4.4 cm MULTIPLE RESAW OPERATOR NOTES:Slightly limited due to overlying bowel gas Pancreas: Obscured by bowel gas Liver: WNL as best visualized, portions obscured by gas Gallbladder: Multiple echogenic shadowing foci seen. Wall appears WNL Evidence for sonographic Mckay's sign: No CBD: Upper limits of normal Right Kidney: No hydronephrosis or masses seen as best visualized Visualized pancreas is within normal limits. Portions obscured by overlying bowel gas. Visualized krissy er is heterogeneously hyperechoic. Evaluation for focal masses suboptimal due to the heterogeneity. M ultiple shadowing mobile gallstones. No pericholecystic fluid or abnormal gallbladder wall thickening . No right-sided hydronephrosis. IMPRESSION: Gallstones without secondary ultrasound evidence for acute cholecystitis. No significant change from most recent prior ultrasound.
[2024-01-11 18:37] LABS: ALT 20 U/L (4-49); AST 28 U/L (17-59); African American GFR (CKD) >90 (>60 ml/min/1.73 sqM); Albumin 4.6 g/dL (3.5-5.0); Alkaline Phosphatase 68 U/L (38-126); Anion Gap 8 mmol/L; Blood Urea Nitrogen 10 mg/dL (9-20); Calcium 9.1 mg/dL (8.4-10.2); Carbon Dioxide 27 mmol/L (22-30); Chloride 103 mmol/L (98-107); Glucose 175 mg/dL (74-99); Lipase 93 U/L (23-300); Non-African American GFR(CKD) >90 (>60 ml/min/1.73 sqM); Potassium 4.5 mmol/L (3.5-5.1); Sodium 138 mmol/L (137-145); Total Bilirubin 0.6 mg/dL (0.2-1.3); Total Protein 7.3 g/dL (6.3-8.2)
[2024-01-11] MEDS: SODIUM CHLORIDE 0.9% 1,000 ML IV STA (20:15)
[2024-01-11] MEDS: KETOROLAC 15 MG/ML 1 ML VIAL IVP STA (20:15)
[2024-01-11] MEDS: ONDANSETRON 4 MG/2 ML VIAL IVP STA (20:19)
[2024-01-11] MEDS: PANTOPRAZOLE 40 MG/10 ML VIAL IVP SCH (20:22)
[2024-01-11 21:52] VITALS: BP 127/69; PULSE 55; RESP 17; TEMP 98.6
== END 2024-01-11 21:52 | disposition home or self-care (01) ==
LOC: EC 16:24
DX: K80.20 Calculus of gallbladder without cholecystitis without obstruction (principal)
CPT/HCPCS: 36415; 80053; 83605; 83690; 85025; 76705; 99284; 96374; 96375 ×2; 96361; J2405; J1885; C9113